=== PATIENT | male | born 1945 | race Caucasian/White ===

== ENCOUNTER 2018-01-09 08:29 | Day surgery (SDC) | payer OTHER ==
[~2018-01-09] VITALS: Ht 167.6 cm; Wt 97.6 kg
[~2018-01-09 08:29] MED LIST: ALLO300 PO; ALPR.25 PO; ASPI81EC PO; GLYB3 PO; INSLI100I SUBQ; LISI20 PO; METF500C PO; METO100ER PO; SIMV40 PO
[2018-01-09] MEDS ORDERED: GLIP10 (08:57)
[2018-01-09] MEDS ORDERED: FERSU220EL (08:58)
== END 2018-01-09 10:34 | disposition home or self-care (01) ==
LOC: ORSCSDS 08:29
PROVIDERS: Ophthalmology
PROC: 08RK3JZ Replacement of Left Lens with Synthetic Substitute, Percutaneous Approach (ICD-10-PCS; principal; 2018-01-09 10:00)
DX: H25.12 Age-related nuclear cataract, left eye (principal); I10 Essential (primary) hypertension; E78.00 Pure hypercholesterolemia, unspecified; E11.9 Type 2 diabetes mellitus without complications; F41.9 Anxiety disorder, unspecified; E66.9 Obesity, unspecified; Z68.31 Body mass index [BMI] 31.0-31.9, adult; Z79.82 Long term (current) use of aspirin; Z79.4 Long term (current) use of insulin; Z79.899 Other long term (current) drug therapy
CPT/HCPCS: 82947; J2250; J3301; J7040; V2632

== ENCOUNTER 2018-02-20 06:53 | Day surgery (SDC) | payer OTHER ==
[~2018-02-20] VITALS: Ht 175.3 cm; Wt 97.2 kg
[~2018-02-20 06:53] MED LIST changes: +FERSU220EL; +GLIP10
== END 2018-02-20 08:53 | disposition home or self-care (01) ==
LOC: ORSCSDS 06:53
PROVIDERS: Ophthalmology
PROC: 08RJ3JZ Replacement of Right Lens with Synthetic Substitute, Percutaneous Approach (ICD-10-PCS; principal; 2018-02-20 08:30)
DX: H25.11 Age-related nuclear cataract, right eye (principal); G47.33 Obstructive sleep apnea (adult) (pediatric); I10 Essential (primary) hypertension; E11.9 Type 2 diabetes mellitus without complications; Z79.82 Long term (current) use of aspirin; Z79.4 Long term (current) use of insulin; Z79.899 Other long term (current) drug therapy; E66.9 Obesity, unspecified; Z68.31 Body mass index [BMI] 31.0-31.9, adult
CPT/HCPCS: 82947; J2250; J3010; J3301; J7040; V2632